=== PATIENT | female | born 1970 | race African-American/Black ===

== ENCOUNTER 2019-01-01 09:00 | Emergency (ER) | payer MEDICAID ==
[~2019-01-01] VITALS: Ht 167.6 cm; Wt 76.0 kg
[2019-01-01] MEDS ORDERED: FLUORESCEIN SODIUM 1MG/STRIP OP ONE (10:45)
[2019-01-01] MEDS ORDERED: TETRACAINE 0.5% OPHTH DROPS 4ML OP ONE (10:45)
[2019-01-01 11:55] VITALS: BP 131/61
== END 2019-01-01 11:57 | disposition home or self-care (01) ==
LOC: ER 09:29
DX: H10.89 Other conjunctivitis (principal)
CPT/HCPCS: 99283